=== PATIENT | male | born 1935 | race Caucasian/White ===

== ENCOUNTER 2017-11-13 14:14 | Inpatient (IN) | payer OTHER ==
[~2017-11-13] VITALS: Ht 165.1 cm; Wt 80.5 kg
[~2017-11-13 14:14] MED LIST: ALPR.25 PO; ALPR.5; ALPR.5 PO; ASPI325 PO; BAYER ADVANCED500 MG PO; BP PILL; Bactrim Ds Tab1 EACH PO; CEFU50SU PO; CEPH500 PO; CHOL10002 PO; CILO100; CIPR500 PO; CITRACAL + BON1 EACH PO; CLIN300 PO; Clotrim Antifun15 GM TP; DIPATR PO; DOCU100 PO; EYE CAPS; FINA5 PO; Ferrous Sulfat325 MG PO; HYDACE5 PO; HYDR1TAB94 PO; LEVFLO250 PO; LINE600 PO; LOSA25 PO; LOSA50 PO; LOSHYD100 PO; Lomotil Tablet1 EACH PO; METO100ER PO; METO25ER PO; METO50ER PO; Macrodantin50 MG PO; NEBI10 PO; NUEDEXTA 20-101 EACH PO; Norco 5-325 Ta1 EACH PO; OMEP20ER PO; OMEPRAZOLE MAGN20 MG PO; PRED10 PO; QUET25 PO; ROBITUSSIN COU237 ML PO; ROBITUSSIN100 MG/5 M PO; SULTRIDS PO; TAMS.4ER PO; TELM40 PO; TRAZ50 PO; TRIM100 PO; [UNRECOGNIZED DRUG - REMARK]
[2017-11-13 15:43] LABS: BASOPHILS PERCENT AUTO 0 % (0-2); EOSINOPHILS PERCENT AUTO 0 % (0-6); Hematocrit 37.3 % (37.0-53.0); Hemoglobin 12.3 g/dL (13.5-17.5); IMMATURE GRAN ABSOLUTE AUTO 0.03 K/mm3 (0.00-0.10); IMMATURE GRAN PERCENT AUTO 1 % (0-1); LYMPHOCYTES PERCENT AUTO 7 % (21-46); MONOCYTES ABSOLUTE AUTO 0.13 K/mm3 (0.16-1.47); MONOCYTES PERCENT AUTO 2 % (4-13); Mean Corpuscular HGB 30.9 pg (26.0-34.0); Mean Corpuscular Volume 94 fL (80-100); Mean Platelet Volume 8.2 fL (9.1-12.4); NEUTROPHILS PERCENT AUTO 91 % (41-73); Platelet Count 176 K/mm3 (150-400); RDW Coefficient Variation 16.9 % (11.7-14.2); RDW Standard Deviation 56.6 fL (35.1-46.3); Red Blood Cell Count 3.98 M/mm3 (4.30-5.90); White Blood Cell Count 6.16 K/mm3 (4.00-11.30)
[2017-11-13 16:05] LABS: Albumin, Blood 3.4 g/dL (3.4-5.0); Bilirubin, Total 6.7 mg/dL (0.1-1.0); Bun/Creatinine Ratio 20.6 (12.0-20.0); Calcium, Blood 8.2 mg/dL (8.5-10.1); Creatinine, Blood 1.6 mg/dL (0.60-1.20); Globulin, Blood 3.3 g/dL (2.2-4.0); Potassium, Blood 4.8 mmol/L (3.5-5.5); Total Protein, Blood 6.7 g/dL (6.4-8.2)
[2017-11-13 16:11] LABS: Source, Urine Catheter
[2017-11-13 16:23] LABS: Blood, Urine 2+ (Neg); Glucose Qualitative, Urine Neg (Neg); Ketones, Urine 1+ (Neg); Leukocyte Esterase, Urine 3+ (Neg); Nitrite, Urine Pos (Neg); Protein, Urine 2+ (Neg); Specific Gravity, Urine 1.015 (1.003-1.022); Urobilinogen, Urine 3+ (Normal)
[2017-11-13 16:28] LABS: Appearance, Urine Clear (Clear); Bilirubin, Urine 3+ (Neg); Color, Urine Amber (P-Yellow)
[2017-11-13 16:29] LABS: Bacteria Mod /hpf; Red Blood Cells, Urine 0-2 /hpf (0-2); Squamous Epithelial Cells Not Seen /hpf (Few)
[2017-11-14 06:22] LABS: Albumin, Blood 2.6 g/dL (3.4-5.0); Bilirubin, Total 6.1 mg/dL (0.1-1.0); Bun/Creatinine Ratio 19.6 (12.0-20.0); Calcium, Blood 7.7 mg/dL (8.5-10.1); Creatinine, Blood 1.43 mg/dL (0.60-1.20); Globulin, Blood 2.7 g/dL (2.2-4.0); Potassium, Blood 4.1 mmol/L (3.5-5.5); Total Protein, Blood 5.3 g/dL (6.4-8.2)
[2017-11-15 05:33] LABS: Albumin, Blood 2.6 g/dL (3.4-5.0); Bilirubin, Total 4.3 mg/dL (0.1-1.0); Bun/Creatinine Ratio 20.3 (12.0-20.0); Calcium, Blood 7.7 mg/dL (8.5-10.1); Creatinine, Blood 1.23 mg/dL (0.60-1.20); Globulin, Blood 2.7 g/dL (2.2-4.0); Potassium, Blood 4.3 mmol/L (3.5-5.5); Total Protein, Blood 5.3 g/dL (6.4-8.2)
[2017-11-15 16:26] LABS: Vancomycin, Trough 11.9 ug/mL (5.0-10.0)
[2017-11-16 10:45] LABS: Source, Urine Catheter
[2017-11-16 11:08] LABS: Bilirubin, Urine Neg (Neg); Blood, Urine 4+ (Neg); Glucose Qualitative, Urine Neg (Neg); Ketones, Urine Neg (Neg); Leukocyte Esterase, Urine 3+ (Neg); Nitrite, Urine Neg (Neg); Protein, Urine Neg (Neg); Specific Gravity, Urine 1.015 (1.003-1.022); Urobilinogen, Urine NORM (Normal)
[2017-11-16 11:21] LABS: Appearance, Urine Clear (Clear); Color, Urine Yellow (P-Yellow)
[2017-11-16 11:22] LABS: Bacteria Not Seen /hpf; Red Blood Cells, Urine 0-2 /hpf (0-2); Squamous Epithelial Cells Not Seen /hpf (Few); White Blood Cells, Urine 0-2 /hpf (0-5)
[2017-11-17 07:03] LABS: Albumin, Blood 3.3 g/dL (3.4-5.0); Bilirubin, Total 2.6 mg/dL (0.1-1.0); Bun/Creatinine Ratio 18.4 (12.0-20.0); Calcium, Blood 8.8 mg/dL (8.5-10.1); Creatinine, Blood 1.36 mg/dL (0.60-1.20); Globulin, Blood 3.2 g/dL (2.2-4.0); Total Protein, Blood 6.5 g/dL (6.4-8.2)
[2017-11-19 01:02] LABS: Source, Urine Catheter
[2017-11-19 01:05] LABS: Bilirubin, Urine Neg (Neg); Blood, Urine 2+ (Neg); Glucose Qualitative, Urine Neg (Neg); Ketones, Urine Neg (Neg); Leukocyte Esterase, Urine 1+ (Neg); Nitrite, Urine Neg (Neg); Protein, Urine Neg (Neg); Urobilinogen, Urine NORM (Normal)
[2017-11-19 01:20] LABS: Appearance, Urine Clear (Clear); Bacteria Rare /hpf; Color, Urine Yellow (P-Yellow); Red Blood Cells, Urine Rare /hpf (0-2); Squamous Epithelial Cells Not Seen /hpf (Few); White Blood Cells, Urine 0-2 /hpf (0-5)
[2017-11-19 06:04] LABS: Albumin, Blood 2.8 g/dL (3.4-5.0); Bilirubin, Total 1.6 mg/dL (0.1-1.0); Bun/Creatinine Ratio 17.4 (12.0-20.0); Calcium, Blood 8.3 mg/dL (8.5-10.1); Creatinine, Blood 1.38 mg/dL (0.60-1.20); Globulin, Blood 2.8 g/dL (2.2-4.0); Potassium, Blood 4.2 mmol/L (3.5-5.5); Total Protein, Blood 5.6 g/dL (6.4-8.2)
[2017-11-19 16:30] LABS: Vancomycin, Trough 20.9 ug/mL (5.0-10.0)
[2017-11-20 05:49] LABS: Albumin, Blood 2.7 g/dL (3.4-5.0); Bilirubin, Total 2.9 mg/dL (0.1-1.0); Bun/Creatinine Ratio 16.1 (12.0-20.0); Calcium, Blood 8.3 mg/dL (8.5-10.1); Creatinine, Blood 1.49 mg/dL (0.60-1.20); Globulin, Blood 2.6 g/dL (2.2-4.0); Potassium, Blood 4.6 mmol/L (3.5-5.5); Total Protein, Blood 5.3 g/dL (6.4-8.2)
[2017-11-21 05:11] LABS: BASOPHILS PERCENT AUTO 0 % (0-2); EOSINOPHILS ABSOLUTE AUTO 0.02 K/mm3 (0.00-0.68); EOSINOPHILS PERCENT AUTO 0 % (0-6); Hematocrit 30.2 % (37.0-53.0); IMMATURE GRAN ABSOLUTE AUTO 0.04 K/mm3 (0.00-0.10); IMMATURE GRAN PERCENT AUTO 1 % (0-1); LYMPHOCYTES ABSOLUTE AUTO 0.88 K/mm3 (0.84-5.20); LYMPHOCYTES PERCENT AUTO 14 % (21-46); MONOCYTES ABSOLUTE AUTO 0.35 K/mm3 (0.16-1.47); MONOCYTES PERCENT AUTO 6 % (4-13); Mean Corpuscular HGB 30.8 pg (26.0-34.0); Mean Corpuscular HGB Conc 33.1 g/dL (31.5-36.5); Mean Corpuscular Volume 93 fL (80-100); Mean Platelet Volume 8.3 fL (9.1-12.4); NEUTROPHILS ABSOLUTE AUTO 4.84 K/mm3 (1.96-9.15); NEUTROPHILS PERCENT AUTO 79 % (41-73); Platelet Count 121 K/mm3 (150-400); RDW Coefficient Variation 16.4 % (11.7-14.2); RDW Standard Deviation 55.7 fL (35.1-46.3); Red Blood Cell Count 3.25 M/mm3 (4.30-5.90); White Blood Cell Count 6.13 K/mm3 (4.00-11.30)
[2017-11-21 05:56] LABS: Albumin, Blood 2.6 g/dL (3.4-5.0); Albumin/Globulin Ratio 1.1 (0.8-1.8); Bilirubin, Total 1.5 mg/dL (0.1-1.0); Bun/Creatinine Ratio 21.3 (12.0-20.0); Calcium, Blood 7.9 mg/dL (8.5-10.1); Creatinine, Blood 1.36 mg/dL (0.60-1.20); Globulin, Blood 2.3 g/dL (2.2-4.0); Potassium, Blood 4.3 mmol/L (3.5-5.5); Total Protein, Blood 4.9 g/dL (6.4-8.2)
[2017-11-21] MEDS ORDERED: ROBITUSSIN COU237 ML PO (08:58)
[2017-11-21] MEDS ORDERED: CITRACAL + D E1 EACH PO (08:58)
[2017-11-21] MEDS ORDERED: CIPR500 PO (08:59)
== END 2017-11-21 15:04 | disposition home or self-care (01) | DRG 699 ==
LOC: ER 14:14 → MEDS 14:15 → ENPENDDIS 11-21 08:30 → MEDS 11-21 15:04
PROVIDERS: Family Medicine; Hospitalist; Physician Assistant
DX: T83.511A Infection and inflammatory reaction due to indwelling urethral catheter, initial encounter (principal); N13.8 Other obstructive and reflux uropathy; K71.6 Toxic liver disease with hepatitis, not elsewhere classified; K75.4 Autoimmune hepatitis; N18.3 Chronic kidney disease, stage 3 (moderate); B96.5 Pseudomonas (aeruginosa) (mallei) (pseudomallei) as the cause of diseases classified elsewhere; R16.1 Splenomegaly, not elsewhere classified; B95.62 Methicillin resistant Staphylococcus aureus infection as the cause of diseases classified elsewhere; N39.0 Urinary tract infection, site not specified; Y84.6 Urinary catheterization as the cause of abnormal reaction of the patient, or of later complication, without mention of misadventure at the time of the procedure; I12.9 Hypertensive chronic kidney disease with stage 1 through stage 4 chronic kidney disease, or unspecified chronic kidney disease
CPT/HCPCS: 36415; 51798; 76700; 80053; 80202; 81001; 83605; 83690; 85025; 87077; 87086; 87186; 96365; 96366; 99285; J3370; J7030; J7050; Q2038

== ENCOUNTER 2018-01-20 01:10 | Day surgery (SDC) | payer OTHER ==
[~2018-01-20 01:10] MED LIST changes: +CITRACAL + D E1 EACH PO
== END 2018-01-20 11:05 | disposition home or self-care (01) ==
LOC: ATC 01:10
DX: N40.1 Benign prostatic hyperplasia with lower urinary tract symptoms (principal); R33.8 Other retention of urine; N13.8 Other obstructive and reflux uropathy; F01.50 Vascular dementia, unspecified severity, without behavioral disturbance, psychotic disturbance, mood disturbance, and anxiety; N13.30 Unspecified hydronephrosis; N39.0 Urinary tract infection, site not specified; B96.89 Other specified bacterial agents as the cause of diseases classified elsewhere; I12.9 Hypertensive chronic kidney disease with stage 1 through stage 4 chronic kidney disease, or unspecified chronic kidney disease; N18.9 Chronic kidney disease, unspecified
CPT/HCPCS: 51702

== ENCOUNTER 2018-02-09 00:57 | Day surgery (SDC) | payer OTHER ==
[2018-02-09] MEDS ORDERED: PRED10 PO (12:30)
== END 2018-02-09 10:00 | disposition home or self-care (01) ==
LOC: ATC 00:57
DX: Z46.6 Encounter for fitting and adjustment of urinary device (principal); F03.90 Unspecified dementia, unspecified severity, without behavioral disturbance, psychotic disturbance, mood disturbance, and anxiety; I12.9 Hypertensive chronic kidney disease with stage 1 through stage 4 chronic kidney disease, or unspecified chronic kidney disease; N18.3 Chronic kidney disease, stage 3 (moderate); N39.0 Urinary tract infection, site not specified; B96.89 Other specified bacterial agents as the cause of diseases classified elsewhere; R33.9 Retention of urine, unspecified
CPT/HCPCS: 51702

== ENCOUNTER 2018-03-14 10:08 | Day surgery (SDC) | payer OTHER | END 2018-03-14 10:35 | disposition home or self-care (01) | LOC: ATC 10:08 | DX: N40.1 Benign prostatic hyperplasia with lower urinary tract symptoms (principal); N13.8 Other obstructive and reflux uropathy; R33.8 Other retention of urine; N13.30 Unspecified hydronephrosis | CPT/HCPCS: 51702 ==

== ENCOUNTER 2018-07-16 14:37 | Emergency (ER) | payer OTHER ==
[~2018-07-16] VITALS: Ht 167.6 cm; Wt 95.2 kg
[2018-07-16] MEDS ORDERED: QUET25 PO (15:59)
[2018-07-16 16:00] LABS: BASOPHILS ABSOLUTE AUTO 0.03 K/mm3 (0.00-0.23); BASOPHILS PERCENT AUTO 1 % (0-2); EOSINOPHILS ABSOLUTE AUTO 0.26 K/mm3 (0.00-0.68); EOSINOPHILS PERCENT AUTO 4 % (0-6); Hematocrit 32.5 % (37.0-53.0); Hemoglobin 10.3 g/dL (13.5-17.5); IMMATURE GRAN ABSOLUTE AUTO 0.11 K/mm3 (0.00-0.10); IMMATURE GRAN PERCENT AUTO 2 % (0-1); LYMPHOCYTES ABSOLUTE AUTO 0.89 K/mm3 (0.84-5.20); LYMPHOCYTES PERCENT AUTO 15 % (21-46); MONOCYTES PERCENT AUTO 7 % (4-13); Mean Corpuscular HGB 30.6 pg (26.0-34.0); Mean Corpuscular HGB Conc 31.7 g/dL (31.5-36.5); Mean Corpuscular Volume 96 fL (80-100); NEUTROPHILS PERCENT AUTO 71 % (41-73); Platelet Count 126 K/mm3 (150-400); RDW Coefficient Variation 15.2 % (11.7-14.2); RDW Standard Deviation 53.8 fL (35.1-46.3); Red Blood Cell Count 3.37 M/mm3 (4.30-5.90); White Blood Cell Count 5.89 K/mm3 (4.00-11.30)
[2018-07-16 16:19] LABS: Albumin, Blood 2.9 g/dL (3.4-5.0); Bilirubin, Total 0.5 mg/dL (0.1-1.0); Bun/Creatinine Ratio 13.7 (12.0-20.0); Calcium, Blood 7.8 mg/dL (8.5-10.1); Creatinine, Blood 1.83 mg/dL (0.60-1.20); Globulin, Blood 2.8 g/dL (2.2-4.0); Potassium, Blood 3.8 mmol/L (3.5-5.5); Total Protein, Blood 5.7 g/dL (6.4-8.2)
[2018-07-16 17:04] LABS: Source, Urine Catheter
[2018-07-16 17:21] LABS: Appearance, Urine Cloudy (Clear); Bilirubin, Urine Neg (Neg); Blood, Urine 4+ (Neg); Color, Urine Yellow (P-Yellow); Glucose Qualitative, Urine Neg (Neg); Ketones, Urine Neg (Neg); Leukocyte Esterase, Urine 3+ (Neg); Nitrite, Urine Pos (Neg); Protein, Urine 1+ (Neg); Urobilinogen, Urine NORM (Normal)
[2018-07-16 17:37] LABS: White Blood Cells, Urine TNTC /hpf (0-5)
[2018-07-16 17:38] LABS: Bacteria Many /hpf; Squamous Epithelial Cells Rare /hpf (Few)
[2018-07-16] MEDS ORDERED: Cipro500 MG PO (18:11)
== END 2018-07-16 18:20 | disposition home or self-care (01) ==
LOC: ER 14:37
PROVIDERS: Emergency Medicine
DX: E86.0 Dehydration (principal); G93.40 Encephalopathy, unspecified; F03.90 Unspecified dementia, unspecified severity, without behavioral disturbance, psychotic disturbance, mood disturbance, and anxiety; N18.3 Chronic kidney disease, stage 3 (moderate); Z88.2 Allergy status to sulfonamides; Z79.899 Other long term (current) drug therapy; Z79.52 Long term (current) use of systemic steroids; Z79.82 Long term (current) use of aspirin; Z87.891 Personal history of nicotine dependence
CPT/HCPCS: 36415; 74022; 80053; 81001; 83605; 85025; 87077; 87086; 87186; 93005; 93010; 99284-25; J7120

== ENCOUNTER 2018-11-29 19:50 | Emergency (ER) | payer OTHER ==
[~2018-11-29] VITALS: Ht 167.6 cm; Wt 95.2 kg
[~2018-11-29 19:50] MED LIST changes: +Cipro500 MG PO
[2018-11-29 20:18] LABS: Source, Urine Catheter
[2018-11-29 20:30] LABS: Appearance, Urine Hazy (Clear); Bilirubin, Urine Neg (Neg); Blood, Urine 3+ (Neg); Color, Urine Yellow (P-Yellow); Glucose Qualitative, Urine Neg (Neg); Ketones, Urine Neg (Neg); Leukocyte Esterase, Urine 3+ (Neg); Nitrite, Urine Neg (Neg); Protein, Urine 2+ (Neg); Urobilinogen, Urine NORM (Normal)
[2018-11-29 20:40] LABS: Red Blood Cells, Urine 0-2 /hpf (0-2)
[2018-11-29 20:41] LABS: Bacteria Rare /hpf; Hyaline Casts 0-2 /lpf (0-2); Squamous Epithelial Cells Rare /hpf (Few)
[2018-11-29] MEDS ORDERED: CEPH500 PO (22:44)
== END 2018-11-29 23:24 | disposition home or self-care (01) ==
LOC: ER 19:50
PROVIDERS: Emergency Medicine
DX: N39.0 Urinary tract infection, site not specified (principal); F03.90 Unspecified dementia, unspecified severity, without behavioral disturbance, psychotic disturbance, mood disturbance, and anxiety; H35.30 Unspecified macular degeneration; Z79.82 Long term (current) use of aspirin; Z79.899 Other long term (current) drug therapy
CPT/HCPCS: 51702; 81001; 87086; 99284

== ENCOUNTER 2018-12-30 08:36 | Inpatient (IN) | payer OTHER ==
[~2018-12-30] VITALS: Ht 165.1 cm; Wt 100.0 kg
[2018-12-30] MEDS ORDERED: METO50ER PO (09:02)
[2018-12-30] MEDS ORDERED: ASPI325 PO (09:02)
[2018-12-30] MEDS ORDERED: CITRACAL + BON1 EACH PO (09:02)
[2018-12-30] MEDS ORDERED: Calcitrate + D1 TAB PO (09:03)
[2018-12-30] MEDS ORDERED: Ferrous Sulfat325 M2 PO (09:04)
[2018-12-30] MEDS ORDERED: Omeprazole20 M1 PO (09:04)
[2018-12-30] MEDS ORDERED: Q-Tussin100 MG/5 M PO (09:04)
[2018-12-30] MEDS ORDERED: PRED10 PO (09:05)
[2018-12-30] MEDS ORDERED: QUET25 PO ×2 (09:05)
[2018-12-30] MEDS ORDERED: TAMS.4ER PO (09:05)
[2018-12-30] MEDS ORDERED: NUEDEXTA 20-101 EACH PO (09:05)
[2018-12-30] MEDS ORDERED: ALPR.5 PO (09:05)
[2018-12-30 09:11] LABS: BASOPHILS ABSOLUTE AUTO 0.02 K/mm3 (0.00-0.23); BASOPHILS PERCENT AUTO 0 % (0-2); EOSINOPHILS ABSOLUTE AUTO 0.33 K/mm3 (0.00-0.68); EOSINOPHILS PERCENT AUTO 5 % (0-6); Hematocrit 33.2 % (37.0-53.0); Hemoglobin 10.5 g/dL (13.5-17.5); IMMATURE GRAN ABSOLUTE AUTO 0.05 K/mm3 (0.00-0.10); IMMATURE GRAN PERCENT AUTO 1 % (0-1); LYMPHOCYTES ABSOLUTE AUTO 0.96 K/mm3 (0.84-5.20); LYMPHOCYTES PERCENT AUTO 14 % (21-46); MONOCYTES ABSOLUTE AUTO 0.69 K/mm3 (0.16-1.47); MONOCYTES PERCENT AUTO 10 % (4-13); Mean Corpuscular HGB 29.4 pg (26.0-34.0); Mean Corpuscular HGB Conc 31.6 g/dL (31.5-36.5); Mean Corpuscular Volume 93 fL (80-100); Mean Platelet Volume 8.9 fL (9.1-12.4); NEUTROPHILS PERCENT AUTO 70 % (41-73); Platelet Count 101 K/mm3 (150-400); RDW Coefficient Variation 15.9 % (11.7-14.2); RDW Standard Deviation 54.1 fL (35.1-46.3); Red Blood Cell Count 3.57 M/mm3 (4.30-5.90); White Blood Cell Count 6.85 K/mm3 (4.00-11.30)
[2018-12-30 09:32] LABS: Albumin, Blood 2.9 g/dL (3.4-5.0); Bilirubin, Total 1.3 mg/dL (0.1-1.0); Bun/Creatinine Ratio 17.3 (12.0-20.0); Calcium, Blood 8.7 mg/dL (8.5-10.1); Creatinine, Blood 1.56 mg/dL (0.60-1.20); Globulin, Blood 2.8 g/dL (2.2-4.0); Potassium, Blood 3.8 mmol/L (3.5-5.5); Total Protein, Blood 5.7 g/dL (6.4-8.2)
[2018-12-30 09:38] LABS: Source, Urine Catheter
[2018-12-30 09:41] LABS: Blood, Urine 5+ (Neg); Glucose Qualitative, Urine Neg (Neg); Ketones, Urine Neg (Neg); Leukocyte Esterase, Urine 3+ (Neg); Nitrite, Urine Neg (Neg); Protein, Urine 3+ (Neg); Specific Gravity, Urine 1.015 (1.003-1.022); Urobilinogen, Urine 2+ (Normal)
[2018-12-30 09:52] LABS: Appearance, Urine Cloudy (Clear); Bilirubin, Urine 1+ (Neg); Color, Urine Yellow (P-Yellow)
[2018-12-30 09:54] LABS: White Blood Cells, Urine 25-50 /hpf (0-5)
[2018-12-30 09:55] LABS: Bacteria Many /hpf; Red Blood Cells, Urine 25-50 /hpf (0-2); Squamous Epithelial Cells Few /hpf (Few)
[2018-12-30] MEDS ORDERED: Advil200 M1 PO (16:18)
[2018-12-30] MEDS ORDERED: ALLER-FEX180 MG PO (16:19)
--- NOTE | 2018-12-30 18:00 | NUR ---
SHIFT SUMMARY PT WAS NEW ER ADMIT THIS SHIFT, DAUGHTER & CG PRESENT ON ADMISSION. PT HAS SLEPT SINCE ADMIT, IS SLEEPING AT THIS TIME, WILL CONT TO MONITOR UNTIL REPORT GIVEN TO JEANETTE JONES.
[2018-12-31 05:46] LABS: Bun/Creatinine Ratio 17.6 (12.0-20.0); Calcium, Blood 8.9 mg/dL (8.5-10.1); Creatinine, Blood 1.42 mg/dL (0.60-1.20); Potassium, Blood 4.3 mmol/L (3.5-5.5)
--- NOTE | 2018-12-31 06:12 | NUR ---
SHIFT SUMMARY PT PLEASANTLY CONFUSED. SLEPT THROUGHOUT THE NIGHT. SLEEPS HARD BUT WAKES EASILY AND ANSWERS QUESTIONS APPROPRIATELY. PT REMAINED IN BED, DID NOT ATTEMPT TO AMBULATE. PASCUAL CATH IN PLACE, PATENT AND DRAINING. TELEMETRY UNIT ON, PT SINUS JENNIE MID TO HIGH 50'S THIS EVENING. BRUISING TO BUE'S AND SKIN TEAR TO L ELBOW. MEPILEX ON SKIN TEAR INTACT. OTHERWISE SKIN C/D/I. PT HAS HOME BRIEFS ON. ON RA. NO COMPLAINTS OF PAIN OR DISCOMFORT. VSS. WILL CONTINUE TO MONITOR AND REPORT TO DAY RN.
[2018-12-31 13:28] LABS: Albumin/Globulin Ratio 1.1 (0.8-1.8); Bilirubin, Total 0.5 mg/dL (0.1-1.0); Creatinine, Blood 1.47 mg/dL (0.60-1.20); Globulin, Blood 2.7 g/dL (2.2-4.0); Potassium, Blood 4.3 mmol/L (3.5-5.5); Total Protein, Blood 5.7 g/dL (6.4-8.2)
--- NOTE | 2018-12-31 17:16 | NUR ---
SHIFT SUMMARY PT HAS HAD NO ACUTE CHANGES THIS SHIFT, AHS SLEP T/O MOST OF SHIFT W/POOR PO INTAKE. PT WAS MINIMAL ASSIST TO BR & HAS BEEN UP TO RECLINER T/O SHIFT. PT APPEARS TO BE SLEEPING AT THIS TIME, WILL CONT TO MONITOR UNTIL REPORT GIVEN TO JEANETTE RN.
--- NOTE | 2019-01-01 04:19 | NUR ---
SHIFT SUMMARY PT PLEASANTLY CONFUSED. AMBULATED WELL W/ 1 ASSIST. STEADY ON FEET BUT NEEDS LOTS OF DIRECTION AND HAS DIFFICULTY SEEING. PASCUAL CATH IN PLACE, PATENT AND DRAINING. PT ON RA. BREATHING EASY, RESPIRATIONS EVEN AND UNLABORED. TELEMETRY ON READING SR W/ 1ST DEGREE BLOCK AT 69. NO COMPLAINTS OF PAIN AND NO NONVERBAL S/S OF PAIN. VSS. NO ACUTE CHANGES THIS SHIFT. WILL CONTINUE TO MONITOR AND REPORT TO DAY RN.
[2019-01-01] MEDS ORDERED: CEFU500T30 PO (13:58)
[2019-01-01] MEDS ORDERED: GAVILAX17 GM PO (13:58)
--- NOTE | 2019-01-01 15:29 | NUR ---
PT DISCHARGED PT DISCHARGED AT 1528. PT IN STABLE CONDITION WITH VSS. NO CHANGES IN ASSESSMENT. IV REMOVED & INTACT. PT UNABLE TO SIGN PAPERWORK OR UNDERSTAND TEACHING. DC PAPERWORK SENT WITH PT. PT CAREGIVER & DAUGHTER CALLED & INFORMED OF DC TIME. PT CAREGIVER, KOLBY GIVEN A VERBAL REPORT OVER THE PHONE BEFORE DC.
== END 2019-01-01 15:35 | disposition home or self-care (01) | DRG 699 ==
LOC: ER 08:36 → MEDS 12:26 → ENPENDDIS 01-01 14:30 → MEDS 01-01 15:35
PROVIDERS: Emergency Medicine; ADMIT Internal Medicine
DX: T83.511A Infection and inflammatory reaction due to indwelling urethral catheter, initial encounter (principal); G93.49 Other encephalopathy; N13.8 Other obstructive and reflux uropathy; D69.6 Thrombocytopenia, unspecified; I12.9 Hypertensive chronic kidney disease with stage 1 through stage 4 chronic kidney disease, or unspecified chronic kidney disease; N18.3 Chronic kidney disease, stage 3 (moderate); N39.0 Urinary tract infection, site not specified; F03.90 Unspecified dementia, unspecified severity, without behavioral disturbance, psychotic disturbance, mood disturbance, and anxiety; Z87.891 Personal history of nicotine dependence; N40.1 Benign prostatic hyperplasia with lower urinary tract symptoms; I73.9 Peripheral vascular disease, unspecified; K75.4 Autoimmune hepatitis; B96.4 Proteus (mirabilis) (morganii) as the cause of diseases classified elsewhere; D64.9 Anemia, unspecified
CPT/HCPCS: 36415; 80048; 80053; 81001; 82140; 85025; 87077; 87081; 87086; 87186; 96360; 96361; 97161; 97530; 99285-25; J0696; J1650; J7030; J7050

== ENCOUNTER → 2019-03-30 | Outpatient (CLI) | payer OTHER ==
[~2019-03-30] MED LIST changes: +ALLER-FEX180 MG PO; +Advil200 M1 PO; +CEFU500T30 PO; +Calcitrate + D1 TAB PO; +Ferrous Sulfat325 M2 PO; +GAVILAX17 GM PO; +Omeprazole20 M1 PO; +Q-Tussin100 MG/5 M PO
== END | disposition home or self-care (01) ==
LOC: LAB SHORT 11:25 → LAB 11:25
DX: N40.1 Benign prostatic hyperplasia with lower urinary tract symptoms (principal)
CPT/HCPCS: 87077; 87086; 87186

== ENCOUNTER 2019-04-27 02:56 | Inpatient (IN) | payer OTHER ==
[~2019-04-27] VITALS: Ht 172.7 cm; Wt 100.7 kg
[2019-04-27 03:27] LABS: Source, Urine Catheter
[2019-04-27 03:42] LABS: Appearance, Urine Hazy (Clear); Bilirubin, Urine Neg (Neg); Blood, Urine 4+ (Neg); Color, Urine Yellow (P-Yellow); Glucose Qualitative, Urine Neg (Neg); Ketones, Urine Neg (Neg); Leukocyte Esterase, Urine 3+ (Neg); Nitrite, Urine Pos (Neg); Protein, Urine 2+ (Neg); Urobilinogen, Urine 1+ (Normal); pH, Urine 6.5 (5.0-8.0)
[2019-04-27 03:49] LABS: Amorphous Light (0-Heavy); Bacteria Many /hpf; Red Blood Cells, Urine 0-2 /hpf (0-2); Squamous Epithelial Cells Rare /hpf (Few); White Blood Cells, Urine TNTC /hpf (0-5)
[2019-04-27 03:53] LABS: Bun/Creatinine Ratio 18.1 (12.0-20.0); Calcium, Blood 8.8 mg/dL (8.5-10.1); Creatinine, Blood 1.6 mg/dL (0.60-1.20); Potassium, Blood 4.3 mmol/L (3.5-5.5)
[2019-04-27 03:54] LABS: BASOPHILS ABSOLUTE AUTO 0.03 K/mm3 (0.00-0.23); BASOPHILS PERCENT AUTO 0 % (0-2); EOSINOPHILS ABSOLUTE AUTO 0.22 K/mm3 (0.00-0.68); EOSINOPHILS PERCENT AUTO 2 % (0-6); Hematocrit 42.4 % (37.0-53.0); Hemoglobin 13.5 g/dL (13.5-17.5); IMMATURE GRAN ABSOLUTE AUTO 0.07 K/mm3 (0.00-0.10); IMMATURE GRAN PERCENT AUTO 1 % (0-1); LYMPHOCYTES ABSOLUTE AUTO 1.39 K/mm3 (0.84-5.20); LYMPHOCYTES PERCENT AUTO 14 % (21-46); MONOCYTES ABSOLUTE AUTO 0.59 K/mm3 (0.16-1.47); MONOCYTES PERCENT AUTO 6 % (4-13); Mean Corpuscular HGB 30.8 pg (26.0-34.0); Mean Corpuscular HGB Conc 31.8 g/dL (31.5-36.5); Mean Corpuscular Volume 97 fL (80-100); Mean Platelet Volume 9.5 fL (9.1-12.4); NEUTROPHILS ABSOLUTE AUTO 7.41 K/mm3 (1.96-9.15); NEUTROPHILS PERCENT AUTO 76 % (41-73); Platelet Count 136 K/mm3 (150-400); RDW Coefficient Variation 14.8 % (11.7-14.2); RDW Standard Deviation 52.9 fL (35.1-46.3); Red Blood Cell Count 4.39 M/mm3 (4.30-5.90); White Blood Cell Count 9.71 K/mm3 (4.00-11.30)
[2019-04-27 06:12] LABS: Albumin, Blood 3.5 g/dL (3.4-5.0); Albumin/Globulin Ratio 1.1 (0.8-1.8); Bilirubin, Direct 1.6 mg/dL (0.0-0.3); Bilirubin, Indirect 0.9 mg/dL (0.1-0.7); Bilirubin, Total 2.5 mg/dL (0.1-1.0); Globulin, Blood 3.1 g/dL (2.2-4.0); Total Protein, Blood 6.6 g/dL (6.4-8.2)
[2019-04-27 06:20] LABS: International Normalized Ratio 1.01; Prothrombin Time Results 10.7 Sec (9.7-11.5)
--- NOTE | 2019-04-27 10:18 | NUR ---
PT ER ADMIT THIS AM: PTS DTR AT BEDSIDE- ASSISTED WITH ADMIT HX. PTS CARE PROVIDER HOME TO BRING IN MED LIST. PT SLEEPS WHEN LEFT ALONE, AROUSABLE TO VERBAL STIMULI. PT HAS HX OF DEMENTIA, ORIENTED TO SELF. FOLLOWS SIMPLE COMMANDS. NO ACUTE DISTRESS NOTED. DENIES PAIN. SPOKE TO DR TORRES ABOUT PTS CODE STATUS, CHANGED TO DNR PER POLST AND PTS DTR. PTS LACTIC STILL 3.1- NOTIFIED DR TORRES, NO NEW ORDERS.
--- NOTE | 2019-04-27 11:19 | NUR ---
N/V PT HAD LARGE EMESIS. MED WITH ZOFRAN PER RX AND CLEANED UP AND REPOSITIONED IN BED. PT NOW RESTING QUIETLY IN BED WITH EYES CLOSED. NO DISTRESS NOTED.
--- NOTE | 2019-04-27 13:49 | NUR ---
REPORT GIVEN TO KEVYN JONES
--- NOTE | 2019-04-27 16:50 | NUR ---
SHIFT SUMMARY THE PATIENT ARRIVED ON THE FLOOR AND WAS ADMITTED BY THE CHARGE NURSE. THE PATIENT WAS TRANSFERRED TO [place] AT 1345. THE PATIENT'S 1600 VITALS SHOWED A LOWER THAN NORMAL B/P AND DR. AVILA WAS CONTACTED AND HE ORDERED AN INCREASE OF THE FLUIDS TO 125 ML/HR. THE PATIENT STATED THAT HE IS FEELING BETTER WHEN REPOSITIONED. THE PATIENT IS SLEEPING AT THIS TIME, WILL CONTINUE TO MONITOR.
--- NOTE | 2019-04-28 02:44 | NUR ---
84 YEAR YEAR OLD MALE WITH BASELINE DEMENTIA ADMITTED FOR UROSEPSIS. HE HAD ELEVATED LACTATE LEVEL. ASPIRATION RISK. Pt was evaluated by speech therapy and pureed diet ordered and he was given honey thick liquids without difficulty. recieved 1500 ml IV fluid. Airway wheezy on 2 l nc. Fall and aspiration precautions in place. continues on antibiotics. able to communicate. does not use call patel.
[2019-04-28 05:11] LABS: BASOPHILS ABSOLUTE AUTO 0.03 K/mm3 (0.00-0.23); BASOPHILS PERCENT AUTO 0 % (0-2); EOSINOPHILS ABSOLUTE AUTO 0.31 K/mm3 (0.00-0.68); EOSINOPHILS PERCENT AUTO 4 % (0-6); Hematocrit 35.5 % (37.0-53.0); IMMATURE GRAN ABSOLUTE AUTO 0.05 K/mm3 (0.00-0.10); IMMATURE GRAN PERCENT AUTO 1 % (0-1); LYMPHOCYTES ABSOLUTE AUTO 0.56 K/mm3 (0.84-5.20); LYMPHOCYTES PERCENT AUTO 8 % (21-46); MONOCYTES ABSOLUTE AUTO 0.71 K/mm3 (0.16-1.47); MONOCYTES PERCENT AUTO 10 % (4-13); Mean Corpuscular HGB 30.6 pg (26.0-34.0); Mean Corpuscular Volume 99 fL (80-100); Mean Platelet Volume 9.3 fL (9.1-12.4); NEUTROPHILS ABSOLUTE AUTO 5.33 K/mm3 (1.96-9.15); NEUTROPHILS PERCENT AUTO 76 % (41-73); Platelet Count 89 K/mm3 (150-400); RDW Coefficient Variation 15.2 % (11.7-14.2); RDW Standard Deviation 55.2 fL (35.1-46.3); Red Blood Cell Count 3.59 M/mm3 (4.30-5.90); White Blood Cell Count 6.99 K/mm3 (4.00-11.30)
[2019-04-28 05:45] LABS: Albumin, Blood 2.6 g/dL (3.4-5.0); Bilirubin, Total 3.3 mg/dL (0.1-1.0); Bun/Creatinine Ratio 15.2 (12.0-20.0); Calcium, Blood 7.9 mg/dL (8.5-10.1); Creatinine, Blood 1.78 mg/dL (0.60-1.20); Globulin, Blood 2.5 g/dL (2.2-4.0); Potassium, Blood 3.9 mmol/L (3.5-5.5); Total Protein, Blood 5.1 g/dL (6.4-8.2)
--- NOTE | 2019-04-28 18:43 | NUR ---
PT. SLEEPING, ATE A FEW BITES OF PUREED DIET, KEENAN STARTED TODAY FOR POSITIVE MRSA IN HIS URINE. PT. HAS BEEN VERY LETHARGIC TODAY, DIFFICULT TO GET HIM TO STAY AWAKE TO EVEN EAT. PASCUAL PATENT AND DRAINING EZEQUIEL COLORED URINE. NO NOTEABLE CHANGES THIS SHIFT.
[2019-04-29 05:28] LABS: BASOPHILS ABSOLUTE AUTO 0.02 K/mm3 (0.00-0.23); BASOPHILS PERCENT AUTO 0 % (0-2); EOSINOPHILS ABSOLUTE AUTO 0.34 K/mm3 (0.00-0.68); EOSINOPHILS PERCENT AUTO 7 % (0-6); Hematocrit 35.1 % (37.0-53.0); Hemoglobin 10.9 g/dL (13.5-17.5); IMMATURE GRAN ABSOLUTE AUTO 0.03 K/mm3 (0.00-0.10); IMMATURE GRAN PERCENT AUTO 1 % (0-1); LYMPHOCYTES ABSOLUTE AUTO 0.57 K/mm3 (0.84-5.20); LYMPHOCYTES PERCENT AUTO 11 % (21-46); MONOCYTES ABSOLUTE AUTO 0.41 K/mm3 (0.16-1.47); MONOCYTES PERCENT AUTO 8 % (4-13); Mean Corpuscular HGB 29.7 pg (26.0-34.0); Mean Corpuscular HGB Conc 31.1 g/dL (31.5-36.5); Mean Platelet Volume 9.4 fL (9.1-12.4); NEUTROPHILS ABSOLUTE AUTO 3.69 K/mm3 (1.96-9.15); NEUTROPHILS PERCENT AUTO 73 % (41-73); Platelet Count 78 K/mm3 (150-400); RDW Standard Deviation 52.8 fL (35.1-46.3); Red Blood Cell Count 3.67 M/mm3 (4.30-5.90); White Blood Cell Count 5.06 K/mm3 (4.00-11.30)
[2019-04-29 05:37] LABS: Mean Corpuscular Volume 96 fL (80-100)
[2019-04-29 05:49] LABS: Alanine Aminotransfer (ALT/SGP 172 U/L (12-78); Albumin, Blood 2.5 g/dL (3.4-5.0); Alk Phos 252 U/L (50-136); Anion Gap 6 mmol/L (6-16); Aspartate Aminotrans (AST/SGOT 116 U/L (12-37); Bilirubin, Total 2.2 mg/dL (0.1-1.0); Blood Urea Nitrogen 22 mg/dL (8-24); Bun/Creatinine Ratio 15.1 (12.0-20.0); CO2, Blood 26 mmol/L (21-32); Chloride, Blood 112 mmol/L (98-108); Creatinine, Blood 1.46 mg/dL (0.60-1.20); Globulin, Blood 2.6 g/dL (2.2-4.0); Glomerular Filtration Rate 49 (60-); Glucose, Blood 95 mg/dL (70-99); Potassium, Blood 3.9 mmol/L (3.5-5.5); Sodium, Blood 144 mmol/L (136-145); Total Protein, Blood 5.1 g/dL (6.4-8.2); Vancomycin, Random 9.2 ug/mL
[2019-04-29 09:07] LABS: Percent Saturation 42.2 % (20.0-50.0)
[2019-04-29 13:39] LABS: Stool Occult Blood Guaiac 1 Neg (Neg)
--- NOTE | 2019-04-29 18:50 | NUR ---
NO NOTEABLE CHANGES THIS SHIFT. PT. STILL DEMENTENTED, HALLUCINATIONG AND SEEING PEOPLE. STILL NOT EATING MUCH, TAKES A COUPLE OF BITES AND REFUSES ANYMORE. STOOL SENT FOR A GUIAC TODAY AND CAME BACK NEGATIVE. AMMONIA LEVELS WNL. SEVERAL TESTS DRAWN TO BE SENT OUT. 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
--- NOTE | 2019-04-29 23:05 | NUR ---
PT has dementia and is unable to give health history. DTR Vianey POA is in and asking about his condition and if he is taking his meds to treat his autoimmune hepatitis? Not currently on home meds had manager multicultural Joyce review MAR from [facility] and make sure they are current yesterday. Called DR BRICEÑO about steroid 10 mg. 10 mg daily for autoimmune hepatitis and it was reordered starting tonight. There is a order to have day MD and Day RN assure home med list is reviewed and ordered if appropriate. PT's primary care DR is DR Pinon. 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 Last changed and he was functional at that time. [facility] also assists with cares. Baseline ambulatory and able to feed self full meals.
[2019-04-30 04:06] LABS: HBSAG SCREEN Negative (Negative); HEP A AB, IGM Negative (Negative); HEP B CORE AB, IGM Negative (Negative); HEP C VIRUS AB <0.1 (0.0-0.9)
[2019-04-30 05:11] LABS: Hematocrit 35.8 % (37.0-53.0)
[2019-04-30 05:38] LABS: Albumin, Blood 2.6 g/dL (3.4-5.0); Albumin/Globulin Ratio 0.9 (0.8-1.8); Bilirubin, Total 1.6 mg/dL (0.1-1.0); Calcium, Blood 8.5 mg/dL (8.5-10.1); Creatinine, Blood 1.38 mg/dL (0.60-1.20); Globulin, Blood 2.8 g/dL (2.2-4.0); Total Protein, Blood 5.4 g/dL (6.4-8.2)
--- NOTE | 2019-04-30 11:56 | NUR ---
Patient is sitting up in bed with his eyes closed. I touch patient on the shoulder and speak his name. Patient says, "yes" but doesn't open his eyes. I ask patient how he is feeling today and he slowly mumbles, "Okay." I ask patient if he could look at me and he says "yes" but does not open his eyes. So I just ask patient if I could say a prayer for him and he said, "Please." I gladly provided prayer. Patient said, "Amen" at the conclusion of my prayer. At no point in the visit did patient open his eyes and appeared to fall back asleep at the conclusion of the prayer.
--- NOTE | 2019-04-30 17:08 | NUR ---
SHIFT SUMMARY PT RESPONDS TO VERBAL STIMULI, FALLS BACK ASLEEP QUICKLY. PT RESUFING MAJORITY OF MEALS. PT RESTING IN BED, UP TO SIDE OF BED WITH PT. LIFT NEEDED TO GET OUT OF BED. PT REPORTS PAIN WITH MOVEMENT, DENIES NEEDS FOR PAIN MEDIATIONS. PT DENIES SOB AND N/V. O2>92% OM 2L O2, TITRATED TO RA THIS EVENING, WILL CONTINUE TO MONITOR. PT RECEIVING IV ANTIBIOTICS. VSS. NO OTHER ACUTE CHANGES NOTED DURING SHIFT. WILL CONTINUE TO MONITOR UNTIL REPORT GIVEN TO LORENA JONES.
--- NOTE | 2019-04-30 18:32 | NUR ---
KOLBY, PT'S CONDUIT CLEANER EXPRESSING CONCERN THAT PATIENT VOICE SOUNDS "RASPY, LIKE HE IS LOSING HIS VOICE. NOTIFED DR SALAS, NO NEW ORDERS.
--- NOTE | 2019-05-01 05:04 | NUR ---
Aureliano adamson: Patient is arousable and has answered simple questions clearly. He took 120cc of thickened water by spoonfuls and tolerated well. Patient has rested most of the shift. 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 He has been repositioned q 3 hours. Denies pain this shift, continues to rest. Call light in reach. He has not used it.
[2019-05-01 08:51] LABS: Vancomycin, Trough 13.5 ug/mL (5.0-10.0)
[2019-05-01 14:07] LABS: HEPARIN INDUCED PLATELET AB 0.133 OD (0.000-0.400)
--- NOTE | 2019-05-01 16:10 | NUR ---
SHIFT SUMMARY PT RESPONDS TO VERBAL STIMULI, ORIENTED TO SELF AND FAMILY. PT PERKS UP WHEN CAREGIVER IN ROOM. PT RESTING IN BED THIS AM, UP TO CHAIR WITH PT/2-MAX ASSIST. PT 2 PERSON MAX OR LIFT TO GET OUT OF BED. PT DENIES PAIN AND N/V DURINGS SHIFT. LS WHEEZING, >92% ON RA, BREATHING TREATMENT PER RT. PT RECEIVING IV ANTIBIOTICS. PT REFUSING BREAKFAST THIS AM, CAREGIVER FEED PT LUNCH. VSS. NO OTHER ACUTE CHANGES NOTED DURING SHIFT. WILL CONTINUE TO MONITOR UNITL REPORT GIVEN TO ONCOMING RN.
--- NOTE | 2019-05-02 03:35 | NUR ---
SHIFT SUMMARY THE PT ADMITTED FOR SEPSIS. CONTACT ISOLATION FOR MRSA IN URINE. DNR. PUREE DIET WITH LIQUIDS BY SPOON ONLY, NO STRAW, NECTOR THICK. UP IN CHAIR TOLLERATED WITH LIFT VERSUS TO PERSON MAX ASSIST. ASSIST PT WITH FEEDING. MEDICATIONS CRUSHED WITH APPLESAUCE. SCDS FOR DVT PROPHYLAXIS. 18G IV TO R AC. POWERGLIDE TO R UPPER ARM. PT IS A 1 PERSON SBA AT BASELINE PER REPORT. [place]. CHRONIC PASCUAL. WIPT THE PTS FACE AND HANDS BEFORE FEEDING TO ASSIST WITH GETTING THE PT TO WAKE UP TO EAT. THE PT FEEDS SELF AT BASELINE BUT REQUIRES FEEDING AT THIS TIME PER REPORT. PT NOTED OT HAVE AUTOIMMUNE HEPATITIS. THE PT ADMITTED FOR ALTERED MENTAL STATUS. NOTED TO HAVE SEPSIS LIKELY SECONDARY TO UTI IN THE SETTING OF CHRONIC INDWELLING CATHETER. THE PT HAS VERY FRAGILE SKIN WITH SKIN TEARS EASILY. THE PT APPEARS TO BE VERY LETHARGIC AND SLEEPING THE MAJORITY OF THE SHIFT SO FAR. THE PT APPEARS TO BE SLEEPING COMFORTABLY AT THIS TIME. FREQUENT VISUAL CHECKS THE PT IS NOT ABLE TO MAKE NEEDS KNOWN. BED ALARM FOR SAFETY. CALL LIGHT IN REACH. HOWEVER, IT DOES NOT APPEAR THAT PT USES CALL LIGHT.
[2019-05-02] MEDS ORDERED: Vsl#3 Capsule1 EACH PO (13:12)
[2019-05-02] MEDS ORDERED: DOXY100 PO (13:12)
--- NOTE | 2019-05-02 15:37 | NUR ---
PATIENT DISCHARGED AT 1500. PATIENT LEFT THE UNIT IN A WHEELCHAIR.
== END 2019-05-02 15:27 | disposition home health service (06) | DRG 698 ==
LOC: ER 02:56 → MEDS 06:11 → ENPENDDIS 05-02 12:51 → MEDS 05-02 15:27
PROVIDERS: Emergency Medicine; Internal Medicine; ADMIT Internal Medicine
DX: T83.511A Infection and inflammatory reaction due to indwelling urethral catheter, initial encounter (principal); A41.02 Sepsis due to Methicillin resistant Staphylococcus aureus; G93.41 Metabolic encephalopathy; J18.9 Pneumonia, unspecified organism; J98.11 Atelectasis; Z79.82 Long term (current) use of aspirin; H35.30 Unspecified macular degeneration; Z87.891 Personal history of nicotine dependence; N40.0 Benign prostatic hyperplasia without lower urinary tract symptoms; N18.3 Chronic kidney disease, stage 3 (moderate); I12.9 Hypertensive chronic kidney disease with stage 1 through stage 4 chronic kidney disease, or unspecified chronic kidney disease; I73.9 Peripheral vascular disease, unspecified; M19.90 Unspecified osteoarthritis, unspecified site; F03.90 Unspecified dementia, unspecified severity, without behavioral disturbance, psychotic disturbance, mood disturbance, and anxiety; E86.0 Dehydration; Z86.73 Personal history of transient ischemic attack (TIA), and cerebral infarction without residual deficits; Z66 Do not resuscitate
CPT/HCPCS: 36415; 71045; 76705; 80048; 80053; 80074; 80076; 80202; 81001; 82140; 82272; 82728; 83540; 83550; 83605; 85014; 85018; 85025; 85027; 85610; 86022; 86038; 87077; 87086; 87147; 87186; 92526; 92610; 93005; 93010; 94640; 94760; 96361; 96365; 97162; 97530; 99285-25; C9113; J0696; J1650; J1956; J2405; J3010; J3370; J7030; J7050; J7512

== ENCOUNTER 2019-06-03 11:09 | Emergency (ER) | payer OTHER ==
[~2019-06-03] VITALS: Ht 175.3 cm; Wt 81.7 kg
[~2019-06-03 11:09] MED LIST changes: +DOXY100 PO; +Vsl#3 Capsule1 EACH PO
[2019-06-03 11:23] LABS: BASOPHILS ABSOLUTE AUTO 0.03 K/mm3 (0.00-0.23); BASOPHILS PERCENT AUTO 0 % (0-2); EOSINOPHILS ABSOLUTE AUTO 0.24 K/mm3 (0.00-0.68); EOSINOPHILS PERCENT AUTO 2 % (0-6); Hematocrit 33.8 % (37.0-53.0); IMMATURE GRAN ABSOLUTE AUTO 0.09 K/mm3 (0.00-0.10); IMMATURE GRAN PERCENT AUTO 1 % (0-1); LYMPHOCYTES ABSOLUTE AUTO 0.58 K/mm3 (0.84-5.20); LYMPHOCYTES PERCENT AUTO 5 % (21-46); MONOCYTES ABSOLUTE AUTO 0.73 K/mm3 (0.16-1.47); MONOCYTES PERCENT AUTO 6 % (4-13); Mean Corpuscular HGB 29.9 pg (26.0-34.0); Mean Corpuscular HGB Conc 32.5 g/dL (31.5-36.5); Mean Platelet Volume 8.8 fL (9.1-12.4); NEUTROPHILS ABSOLUTE AUTO 9.66 K/mm3 (1.96-9.15); NEUTROPHILS PERCENT AUTO 85 % (41-73); Platelet Count 125 K/mm3 (150-400); RDW Coefficient Variation 15.3 % (11.7-14.2); RDW Standard Deviation 51.8 fL (35.1-46.3); Red Blood Cell Count 3.68 M/mm3 (4.30-5.90); White Blood Cell Count 11.33 K/mm3 (4.00-11.30)
[2019-06-03] MEDS ORDERED: METO50ER PO (11:28)
[2019-06-03] MEDS ORDERED: ASPI325 PO (11:28)
[2019-06-03 11:29] LABS: Mean Corpuscular Volume 92 fL (80-100)
[2019-06-03] MEDS ORDERED: CALCIUM CIT 311 EACH PO (11:30)
[2019-06-03] MEDS ORDERED: Cough Syru100 MG/5 M PO (11:31)
[2019-06-03] MEDS ORDERED: FERSU300 PO (11:31)
[2019-06-03] MEDS ORDERED: OMEP20ER PO (11:31)
[2019-06-03] MEDS ORDERED: ALPR.5 PO (11:32)
[2019-06-03] MEDS ORDERED: NUEDEXTA 20-101 EACH PO (11:32)
[2019-06-03] MEDS ORDERED: TAMS.4ER PO (11:32)
[2019-06-03] MEDS ORDERED: QUET25 PO ×2 (11:32→11:33)
[2019-06-03] MEDS ORDERED: Prednisone10 MG PO (11:32)
[2019-06-03 11:53] LABS: Bilirubin, Total 0.7 mg/dL (0.1-1.0); Bun/Creatinine Ratio 18.4 (12.0-20.0); Creatinine, Blood 1.74 mg/dL (0.60-1.20); Globulin, Blood 2.9 g/dL (2.2-4.0); Potassium, Blood 4.1 mmol/L (3.5-5.5); Total Protein, Blood 5.9 g/dL (6.4-8.2)
[2019-06-03 13:11] LABS: Source, Urine Catheter
[2019-06-03 13:15] LABS: Bilirubin, Urine Neg (Neg); Blood, Urine 5+ (Neg); Glucose Qualitative, Urine Neg (Neg); Ketones, Urine Neg (Neg); Leukocyte Esterase, Urine 3+ (Neg); Nitrite, Urine Pos (Neg); Protein, Urine 2+ (Neg); Urobilinogen, Urine NORM (Normal)
[2019-06-03 13:27] LABS: Appearance, Urine Cloudy (Clear); Color, Urine Yellow (P-Yellow)
[2019-06-03 13:28] LABS: Bacteria Many /hpf; Red Blood Cells, Urine TNTC /hpf (0-2); Squamous Epithelial Cells Not Seen /hpf (Few); White Blood Cells, Urine TNTC /hpf (0-5)
[2019-06-03] MEDS ORDERED: Vibramycin100 MG PO (14:34)
== END 2019-06-03 15:40 | disposition home or self-care (01) ==
LOC: ER 11:09
PROVIDERS: Emergency Medicine
DX: N39.0 Urinary tract infection, site not specified (principal); F03.90 Unspecified dementia, unspecified severity, without behavioral disturbance, psychotic disturbance, mood disturbance, and anxiety; Z88.2 Allergy status to sulfonamides; Z88.8 Allergy status to other drugs, medicaments and biological substances; Z79.82 Long term (current) use of aspirin; Z79.899 Other long term (current) drug therapy; Z79.52 Long term (current) use of systemic steroids
CPT/HCPCS: 36415; 80053; 81001; 85025; 87077; 87086; 87186; 93005; 93010; 99285-25

== ENCOUNTER 2019-06-07 17:51 | Inpatient (IN) | payer OTHER ==
[~2019-06-07] VITALS: Ht 165.1 cm; Wt 99.4 kg
[~2019-06-07 17:51] MED LIST changes: +CALCIUM CIT 311 EACH PO; +Cough Syru100 MG/5 M PO; +FERSU300 PO; +Prednisone10 MG PO; +Vibramycin100 MG PO
[2019-06-07 19:23] LABS: Albumin, Blood 3.2 g/dL (3.4-5.0); Albumin/Globulin Ratio 0.9 (0.8-1.8); Bilirubin, Total 0.4 mg/dL (0.1-1.0); Bun/Creatinine Ratio 23.8 (12.0-20.0); Calcium, Blood 8.8 mg/dL (8.5-10.1); Creatinine, Blood 1.72 mg/dL (0.60-1.20); Globulin, Blood 3.4 g/dL (2.2-4.0); Potassium, Blood 4.3 mmol/L (3.5-5.5); Total Protein, Blood 6.6 g/dL (6.4-8.2)
[2019-06-07 19:35] LABS: BASOPHILS ABSOLUTE AUTO 0.02 K/mm3 (0.00-0.23); BASOPHILS PERCENT AUTO 0 % (0-2); EOSINOPHILS ABSOLUTE AUTO 0.08 K/mm3 (0.00-0.68); EOSINOPHILS PERCENT AUTO 1 % (0-6); Hematocrit 37.6 % (37.0-53.0); Hemoglobin 11.6 g/dL (13.5-17.5); IMMATURE GRAN ABSOLUTE AUTO 0.08 K/mm3 (0.00-0.10); IMMATURE GRAN PERCENT AUTO 1 % (0-1); LYMPHOCYTES ABSOLUTE AUTO 0.77 K/mm3 (0.84-5.20); LYMPHOCYTES PERCENT AUTO 11 % (21-46); MONOCYTES ABSOLUTE AUTO 0.37 K/mm3 (0.16-1.47); MONOCYTES PERCENT AUTO 5 % (4-13); Mean Corpuscular HGB 29.7 pg (26.0-34.0); Mean Corpuscular HGB Conc 30.9 g/dL (31.5-36.5); NEUTROPHILS ABSOLUTE AUTO 5.73 K/mm3 (1.96-9.15); NEUTROPHILS PERCENT AUTO 81 % (41-73); Platelet Count 204 K/mm3 (150-400); RDW Coefficient Variation 15.3 % (11.7-14.2); White Blood Cell Count 7.05 K/mm3 (4.00-11.30)
[2019-06-07 19:36] LABS: Mean Corpuscular Volume 96 fL (80-100)
--- NOTE | 2019-06-08 04:19 | NUR ---
SHIFT SUMMARY: PT IS ALERT AND ORIENTED TO SELF, CONFUSED AT BASELINE. PT IS CALM AND COOPERATIVE WITH CARE. PT DOES NOT USE HIS CALL LIGHT. PT NOT OUT OF BED OVERNIGHT, 1-2 ASSIST FOR TRANSFERS. PT DENIES PAIN, NAUSEA, VOMITING, AND SOB. PT TO HAVE PICC LINE PLACED AND OUTPT IV ANTIBIOTICS FOR UTI. POSSIBLE DC AFTER PICC PLACEMENT. SUPRAPUBIC CATHETER PATENT AND DRAINING. IV FLUIDS RUNNING ORDERED. PT SLEPT MUCH OF THE NIGHT WHEN NOT DISTURBED. NO ACUTE CHANGES OR COMPLICATIONS. WILL REPORT TO DAY NURSE.
[2019-06-08 05:36] LABS: Mean Corpuscular HGB 30.4 pg (26.0-34.0); Mean Corpuscular HGB Conc 32.3 g/dL (31.5-36.5); Mean Corpuscular Volume 94 fL (80-100); Platelet Count 167 K/mm3 (150-400); RDW Standard Deviation 52.1 fL (35.1-46.3); Red Blood Cell Count 3.29 M/mm3 (4.30-5.90); White Blood Cell Count 6.91 K/mm3 (4.00-11.30)
[2019-06-08 06:05] LABS: Albumin, Blood 2.6 g/dL (3.4-5.0); Albumin/Globulin Ratio 0.9 (0.8-1.8); Bilirubin, Total 0.3 mg/dL (0.1-1.0); Bun/Creatinine Ratio 23.5 (12.0-20.0); Calcium, Blood 7.9 mg/dL (8.5-10.1); Creatinine, Blood 1.49 mg/dL (0.60-1.20); Globulin, Blood 2.9 g/dL (2.2-4.0); Potassium, Blood 3.7 mmol/L (3.5-5.5); Total Protein, Blood 5.5 g/dL (6.4-8.2)
--- NOTE | 2019-06-08 14:55 | NUR ---
DISCHARGE ANTIBIOTICS: PATIENT'S CAREGIVER, KOLBY, EXPRESSED CONCERN OVER PATIENT DISCHARGING ON IV ANTIBIOTICS. SHE REPORTS THAT THE PATIENT PULLS AT LINES AND THAT IT WOULD BE DOABLE, BUT A STRUGGLE TO GET THE PATIENT TO THE RACQUEL. DISCUSSED WITH AMADA BAIG AND DR. CARPENTER. PLAN IS FOR THE PATIENT TO HAVE 3-4 DAYS OF IV ANTIBIOTICS AND THEN DISCHARGE ON ORAL ANTIBIOTICS. THIS INFORMATION WAS RELAYED TO THE CAREGIVER, KOLBY, AT [facility] ([phone]).
--- NOTE | 2019-06-08 18:43 | NUR ---
END OF SHIFT SUMMARY: PATIENT REPORTED JUST FEELING TIRED THROUGHOUT THE DAY. REFUSED BREAKFAST AND LUNCH. ATE SOME OF THIS DINNER. PATIENT IS A FEEDER. PATIENT'S CAREGIVER KOLBY IN TO SEE PATIENT AND CHECK ON HIS STATUS. ABLE TO UPDATE HER ON THE DISCHARGE PLAN (SEE NURSE'S NOTE). PATIENT SLEPT MOST OF THE DAY. TOLERATING IVF AND IV ABX WELL. URINE IS LIGHT YELLOW, FREE OF CLOUDINESS OR SEDIMENT. PATIENT LEAKS FROM AROUND THE INSERTION OF THE CATHETER. CAREGIVER REPORTS THAT AFTER THE PLACEMENT, THE MD (DR. [facility] [place]) STATED THAT THIS WOULD BE NORMAL WHILE HIS BODY ADJUSTS. PATIENT IS CALM AND COOPERATIVE. DISCOMFORT NOTED WITH REPOSITION THAT RESOLVES ONCE POSITIONING IS COMPLETE.
--- NOTE | 2019-06-08 22:50 | NUR ---
PATIENT CONTINUES TO SLEEP AFTER ASSESSMENT. NS FINISHED INFUSING. CALL LIGHT IN REACH. WILL CONTINUE TO MONITOR.
--- NOTE | 2019-06-09 03:36 | NUR ---
SHIFT SUMMARY PATIENT HAD NO ACUTE CHANGES OBSERVED THIS SHIFT. AXOX ONE TO SELF. BEDFAST. TAKES MEDICATION WHOLE ONE AT A TIME. PAIN WITH REPOSITIONING ONLY. [place]. PIV REMAINS INTACT. NS FINISHED INFUSING. IV ABX INFUSED. PATIENT IS A FEEDER. SUPRA PUBIC CATH CONTINUES TO LEAK. SEE LAST SHIFT SUMMARY. VSS/AFEBRILE. DENIES SOB AND N/V. COMMUNICATION LECTURER REPORTS NSR, 1ST DEGREE, BBB, W/PVC. PATIENT ABLE TO SLEEP MOST OF THE SHIFT. COOPERATIVE WITH CARE. BED ALARM ACTIVATED. CALL LIGHT IN REACH. BED IN LOWEST POSITION. WILL CONTINUE TO MONITOR UNTIL DAY SHIFT NURSE ASSUMES CARE.
[2019-06-09 05:18] LABS: BASOPHILS ABSOLUTE AUTO 0.07 K/mm3 (0.00-0.23); BASOPHILS PERCENT AUTO 1 % (0-2); EOSINOPHILS ABSOLUTE AUTO 0.36 K/mm3 (0.00-0.68); EOSINOPHILS PERCENT AUTO 4 % (0-6); Hematocrit 36.4 % (37.0-53.0); Hemoglobin 11.4 g/dL (13.5-17.5); IMMATURE GRAN ABSOLUTE AUTO 0.23 K/mm3 (0.00-0.10); IMMATURE GRAN PERCENT AUTO 3 % (0-1); LYMPHOCYTES ABSOLUTE AUTO 1.62 K/mm3 (0.84-5.20); LYMPHOCYTES PERCENT AUTO 20 % (21-46); MONOCYTES ABSOLUTE AUTO 0.55 K/mm3 (0.16-1.47); MONOCYTES PERCENT AUTO 7 % (4-13); Mean Corpuscular HGB 29.4 pg (26.0-34.0); Mean Corpuscular HGB Conc 31.3 g/dL (31.5-36.5); Mean Corpuscular Volume 94 fL (80-100); Mean Platelet Volume 8.5 fL (9.1-12.4); NEUTROPHILS ABSOLUTE AUTO 5.43 K/mm3 (1.96-9.15); NEUTROPHILS PERCENT AUTO 66 % (41-73); Platelet Count 165 K/mm3 (150-400); RDW Coefficient Variation 15.2 % (11.7-14.2); RDW Standard Deviation 51.8 fL (35.1-46.3); Red Blood Cell Count 3.88 M/mm3 (4.30-5.90); White Blood Cell Count 8.26 K/mm3 (4.00-11.30)
[2019-06-09 06:03] LABS: Bun/Creatinine Ratio 19.7 (12.0-20.0); Calcium, Blood 8.7 mg/dL (8.5-10.1); Creatinine, Blood 1.57 mg/dL (0.60-1.20); Potassium, Blood 4.2 mmol/L (3.5-5.5)
--- NOTE | 2019-06-09 18:19 | NUR ---
NO ACUTE CHANGES THIS SHIFT. PATIENT IS COMPLIANT WITH CARES AND FRIENDLY WITH STAFF. HE HAS SLEPT MOST OF THE SHIFT. DRESSING CHANGED TO SUPRAPUBIC THROUGH OUT THE SHIFT.
--- NOTE | 2019-06-10 03:10 | NUR ---
SHIFT SUMMARY PATIENT HAD NO ACUTE CHANGES OBSERVED THIS SHIFT. COOPERATIVE WITH CARE. DENIES PAIN, SOB, AND N/V. VSS/AFEBRILE. SUPRAPUBIC DRESSING CHANGED T/O SHIFT. BEDFAST AND [place]. PIV REMAINS INTACT. TECH REPORTS NSR, 1ST DEGREE, W/PVC AT 63. SLEPT MOST OF THE SHIFT. CALL LIGHT IN REACH. BED IN LOWEST POSITION. WILL CONTINUE TO MONITOR UNTIL DAY SHIFT NURSE ASSUMES CARE.
[2019-06-10 06:17] LABS: BASOPHILS ABSOLUTE AUTO 0.05 K/mm3 (0.00-0.23); BASOPHILS PERCENT AUTO 1 % (0-2); EOSINOPHILS ABSOLUTE AUTO 0.36 K/mm3 (0.00-0.68); EOSINOPHILS PERCENT AUTO 5 % (0-6); Hematocrit 32.9 % (37.0-53.0); Hemoglobin 10.5 g/dL (13.5-17.5); IMMATURE GRAN ABSOLUTE AUTO 0.28 K/mm3 (0.00-0.10); IMMATURE GRAN PERCENT AUTO 4 % (0-1); LYMPHOCYTES PERCENT AUTO 20 % (21-46); MONOCYTES ABSOLUTE AUTO 0.57 K/mm3 (0.16-1.47); MONOCYTES PERCENT AUTO 8 % (4-13); Mean Corpuscular HGB 29.7 pg (26.0-34.0); Mean Corpuscular HGB Conc 31.9 g/dL (31.5-36.5); Mean Corpuscular Volume 93 fL (80-100); Mean Platelet Volume 8.8 fL (9.1-12.4); NEUTROPHILS ABSOLUTE AUTO 4.45 K/mm3 (1.96-9.15); NEUTROPHILS PERCENT AUTO 63 % (41-73); Platelet Count 168 K/mm3 (150-400); RDW Coefficient Variation 15.1 % (11.7-14.2); RDW Standard Deviation 51.8 fL (35.1-46.3); Red Blood Cell Count 3.54 M/mm3 (4.30-5.90); White Blood Cell Count 7.11 K/mm3 (4.00-11.30)
[2019-06-10 07:08] LABS: Bun/Creatinine Ratio 20.8 (12.0-20.0); Calcium, Blood 8.6 mg/dL (8.5-10.1); Creatinine, Blood 1.54 mg/dL (0.60-1.20); Potassium, Blood 4.1 mmol/L (3.5-5.5)
--- NOTE | 2019-06-10 18:24 | NUR ---
PATIENT APPEARS MORE CONFUSED THAN LAST SHIFT. HE HAS HAD 3 LARGE BLACK/GREEN TARRY BMS THIS SHIFT. HIS DRESSING TO HIS SUPRAPUBIC HAS BEEN CHANGED WELL THE DRESSING TO LEFT TRICEP AREA. SUPRAPUBIC CATH HAS SLOWED IN LEAKING AFTER BEING WORKED ON AXEL FROM RACQUEL. PATIENT AHD NEW IV PLACED PREVIOUS ONE INFILTRATED DURING ADMINISTRATION OF ABX. NO ACUTE CHANGES TO PATIENT.
--- NOTE | 2019-06-10 23:12 | NUR ---
PATIENT SLEEPING WITH TV ON. WILL CONTINUE TO MONITOR.
--- NOTE | 2019-06-11 03:33 | NUR ---
SHIFT SUMMARY PATIENT HAD NO ACUTE CHANGES OBSERVED. ALERT TO SELF. BEDFAST AND ASA'CARSARMIUT. VSS/AFEBRILE. DENIES PAIN, SOB, AND N/V. PIV REMAINS INTACT. IV ABX INFUSED. SUPRAPUBIC CATH DRESSING CHANGED WITH NOTED LESS LEAKING. WINE CONSULTANT REPORTS NSR, 1ST DEGREE, W/PVC AT 65. BED ALARM ACTIVATED. CALL LIGHT IN REACH. BED IN LOWEST POSITION. WILL CONTINUE TO MONITOR UNTIL DAY SHIFT NURSE ASSUMES CARE.
--- NOTE | 2019-06-11 18:11 | NUR ---
SHIFT SUMMARY PT HAS BEEN SLEEPING MOST OF THE SHIFT. PT AWAKENS TO EAT MEALS BUT GOES BACK TO SLEEP AFTER. PT'S SUPRAPUBIC CATHETER SLIGHTLY LEAKING THIS EVENING. REPORT FROM NOC RN IS THAT THE LEAKING IS CHRONIC. PT HAS HAD NO ACUTE CHANGES. IV ANTIBIOTICS ADMINISTERED PER EMAR. WILL CONTINUE TO MONITOR AND REPORT TO ONCOMING RN. CALL LIGHT IN REACH AND BED ALARM ON FOR SAFETY.
--- NOTE | 2019-06-12 05:46 | NUR ---
SHIFT SUMMARY PATIENT IS ALERT AND ORIENTED TO SELF. PATIENT SLEPT WELL THROUGHOUT THE NIGHT. SUPRAPUBIC CATHETER IS PATENT. NO NEW CHANGES NOTED THROUGHOUT THE NIGHT. VITALS STABLE.
--- NOTE | 2019-06-12 17:50 | NUR ---
SHIFT SUMMARY PT SAT UP IN CHAIR FOR LUNCH THIS SHIFT. PT IS VERY DIFFICULT TO DIRECT WHEN TRYING TO GET HIM TO AMBULATE TO THE CHAIR/BACK TO BED. PT HAS HAD NO COMPLAINTS THIS SHIFT. SUPRAPUBIC CATHETER CONTINUES TO LEAK AT TIMES. PT PUTTIN OUT A LOT OF URINE IN CATHETER BAG. PT SLEEPING WHEN LAYING IN BED. NO ACUTE CHANGES THIS SHIFT. PT STILL RECEIVING IV ANTIBIOTIC. WILL CONTINUE TO MONITOR AND REPORT TO ONCOMING RN. BED ALARM ON FOR SAFETY.
--- NOTE | 2019-06-13 04:31 | NUR ---
SHIFT SUMMARY: 84 Y/O MALE RESTED COMFORTABLY IN BED, ALERT TO PERSON ONLY, SUPRAPUBIC CATHETER DRAINING CLEAR YELLOW FLUID WITH SCANT LEAKAGE AT INSERTION SITE NOTED, TOOK MEDICATIONS WITHOUT ISSUE, DENIES PAIN OR NAUSEA, BED ALARM APPLIED, BED LOW POSITION, CALL LIGHT AT SIDE.
--- NOTE | 2019-06-13 09:04 | NUR ---
DURING MORNING MED PASS, COMPUTER FROZE AND MEDS WERE THEN ENTERED MANUALLY. CHARGE NURSE PRESENT AND AWARE
--- NOTE | 2019-06-13 17:09 | NUR ---
SHIFT SUMMARY PT AXO TO SELF AND FOLLOWING DIRECTIONS ONLY. PLEASANT AND COOPERATIVE WITH CARE. VSS. PT SLEEPING THROUGHOUT SHIFT. SUPRAPUBIC CATH CONINTUES TO LEAK. DRAINING CLEAR YELLOW URINE. SCROTAL REDNESS NOTED, DR BEATTY NOTIFIED AND NYSTATIN CREME ORDERED BID. IV PATENT AND INFUSING AT THIS TIME. DIET CHANGED TO MECH SOFT DUE TO PT NOT ABLE TO CHEW THE REG DIET. BED IN LOW POSITION, CALL LIGHT WITHIN REACH, BED ALARM ON.
--- NOTE | 2019-06-13 23:08 | NUR ---
PT RESTING COMFORTABLY IN BED, DENIES PAIN, SUPRAPUBIC CATHETER DRAINING CLEAR YELLOW FLUID, SCANT DRAINAGE AT SUPRAPUBIC INSERTION SITE NOTED, ATTENDS DIAPERS APPLIED.
--- NOTE | 2019-06-14 04:15 | NUR ---
SHIFT SUMMARY: 84 Y/O MALE RESTED COMFORTABLY ALL SHIFT, ALERT TO PERSON ONLY, REQUIRES ASSISTANCE WITH ALL ADLS, REPOSITIONED EVERY 2 HOURS, SUPRAPUBIC CATHETER DRAINING CLEAR YELLOW FLUID, SCANT DRAINAGE NOTED AROUND SUPRAPUBIC INSERTION SITE, BED ALARM APPLIED, BED LOW POSITION, CALL LIGHT AT SIDE.
--- NOTE | 2019-06-14 16:04 | NUR ---
SHIFT SUMMARY THE PT'S [facility] CALLED TODAY [facility] THEY STATE THAT WHEN HE IS DISCHARGED, HE WILL NEED A RIDE ARRANGED BACK TO THE FACILITY. DISCHARGE MEDICATIONS MAY BE FAXED TO [facility] IN [place]. PLAN IS FOR DISCHARGE TOMORROW. CONFUSED. IV ANTIBIOTICS CONTINUE. HE TOOK HIS PILLS 1-2 AT A TIME WITH WATER.
--- NOTE | 2019-06-15 04:59 | NUR ---
SHIFT SUMMARY PT HAD NO ISSUES NOTED THIS SHIFT. PT DOES HAVE HALLUCINATIONS AND TALK TO PEOPLE NOT THERE. PT IS ABLE TO FOLLOW DIRECTIONS BUT IS CONFUSED. PT HAS SLEPT WELL T/O SHIFT. PT CURRENTLY SLEEPING AND BREATHING EASY. CALL LIGHT IN REACH.
[2019-06-15] MEDS ORDERED: ACET325 PO (09:32)
[2019-06-15] MEDS ORDERED: CLOBET30L TOP (10:01)
--- NOTE | 2019-06-15 10:06 | NUR ---
CALLED PT[facility]S [facility] "[facility]" INFORMED THEM OF THE CHANGE WITH THE LOTRIZOME CREAM. THEY REQUESTED I HARDCOPY DISCHARGE INSTRUCTIONS WITH THE PT. THEY HAVE BEEN IN CONTACT WITH STUDENT SERVICES VICE PRESIDENT FRANCY PLAZA. I INFORMED THEM OF THE FOLL0W UP APPOINTMENT WITH DR. CONTEH. THEY DECLINED A HANDOFF REPORT AT THIS TIME.
--- NOTE | 2019-06-15 12:41 | NUR ---
DISCHARGE NOTE PT'S IV DC'D WNL. MEDICATIONS FAXED TO PREFERRED PHARMACY. DISCHARGE PAPERWORK SENT WITH PT TO [facility]. PERSONAL POSSESSIONS SENT WITH PT. TRANSPORT ARRANGED FOR AND ARRIVED WITH WHEELCHAIR. USED A LIFT TO PLACE PT IN CHAIR. ALL PERSONAL POSSESSIONS AND PAPERWORK SENT WITH SPORTS OFFICIAL. [facility] CALLED AND INFORMED.
== END 2019-06-15 12:38 | disposition home health service (06) | DRG 699 ==
LOC: ER 17:51 → MEDS 17:52 → ENPENDDIS 06-15 11:30 → MEDS 06-15 12:38
PROVIDERS: Family Medicine; Physician Assistant; ADMIT Internal Medicine
DX: T83.511A Infection and inflammatory reaction due to indwelling urethral catheter, initial encounter (principal); N13.8 Other obstructive and reflux uropathy; N39.0 Urinary tract infection, site not specified; B96.5 Pseudomonas (aeruginosa) (mallei) (pseudomallei) as the cause of diseases classified elsewhere; N18.3 Chronic kidney disease, stage 3 (moderate); N40.1 Benign prostatic hyperplasia with lower urinary tract symptoms; I12.9 Hypertensive chronic kidney disease with stage 1 through stage 4 chronic kidney disease, or unspecified chronic kidney disease; F03.90 Unspecified dementia, unspecified severity, without behavioral disturbance, psychotic disturbance, mood disturbance, and anxiety; E86.0 Dehydration; J45.909 Unspecified asthma, uncomplicated; I73.9 Peripheral vascular disease, unspecified; M19.90 Unspecified osteoarthritis, unspecified site; Z86.14 Personal history of Methicillin resistant Staphylococcus aureus infection; Z88.2 Allergy status to sulfonamides; Z88.8 Allergy status to other drugs, medicaments and biological substances; Z79.82 Long term (current) use of aspirin; Z79.52 Long term (current) use of systemic steroids; Z79.899 Other long term (current) drug therapy
CPT/HCPCS: 36415; 71045; 80048; 80053; 85025; 85027; 94760; 96365; 96366; 99283-25; A9270; J0713; J1650; J7030; J7512